=== PATIENT | female | born 1960 | race Caucasian/White ===

== ENCOUNTER 2018-07-22 14:35 | Inpatient (IN) | payer OTHER ==
[2018-07-22] MEDS ORDERED: NACL 0.9% 3 ML SYG IV (16:00)
[2018-07-22] MEDS ORDERED: HYDROCODONE/APAP (5/325) TAB PO (16:00)
[2018-07-22] MEDS ORDERED: ACETAMINOPHEN 325 MG TAB PO (16:00)
[2018-07-22] MEDS ORDERED: ONDANSETRON 4 MG INJ IV (16:00)
[2018-07-22] MEDS ORDERED: ALBUTEROL/IPRATROPIUM (NEB) 3 ML AMP HHN (16:30)
[2018-07-22 16:37] LABS: PROTIME 14.3 Sec (11.9-14.9); PT RATIO 1.1
[2018-07-22 16:38] LABS: PARTIAL THROMBOPLASTIN TIME 28.9 Sec (23.0-35.0)
[2018-07-22 16:41] LABS: LACTIC ACID 1.3 mmol/L (0.5-2.0)
[2018-07-22 16:45] LABS: ALANINE AMINOTRANSFERASE 13 IU/L (13-69); ALBUMIN/GLOBULIN RATIO 1.29; ALKALINE PHOSPHATASE 59 IU/L (42-121); ANION GAP 10 (5-13); ASPARTATE AMINO TRANSFERASE 16 IU/L (15-46); BILIRUBIN,INDIRECT 0.3 mg/dl (0-1.1); BILIRUBIN,TOTAL 0.3 mg/dl (0.2-1.3); BLOOD UREA NITROGEN 18 mg/dl (7-20); CALCIUM 8.8 mg/dl (8.4-10.2); CARBON DIOXIDE 23 mmol/L (21-31); CHLORIDE 103 mmol/L (97-110); CREATININE 0.96 mg/dl (0.44-1.00); Estimated GFR > 60 mL/min (>60); GLUCOSE 108 mg/dl (70-220); POTASSIUM 4.2 mmol/L (3.5-5.1); SODIUM 136 mmol/L (135-144); TOTAL PROTEIN 7.1 g/dl (6.1-8.1)
[2018-07-22] MEDS: SOD CHLORIDE 0.9% 1,000 ML IV (16:54)
[2018-07-22] MEDS: LEVOFLOXACIN 500MG/D5W (PMX) 100 ML IVPB (17:00)
[2018-07-22 17:27] LABS: ABNORMAL IP MESSAGE 1; HEMOGLOBIN 13.6 g/dl (12.0-16.0); MEAN CORPUSCULAR HEMOGLOBIN 29.6 pg (29.0-33.0); MEAN CORPUSCULAR HGB CONC 32.4 g/dl (32.0-37.0); MEAN CORPUSCULAR VOLUME 91.3 fl (82.0-101.0); MEAN PLATELET VOLUME 12.1 fl (7.4-10.4); PLATELET COUNT 207 10^3/UL (140-415); RED CELL DISTRIBUTION WIDTH 13.2 % (11.5-14.5)
[2018-07-22 17:27] LABS: WHITE BLOOD COUNT 28.9 10^3/ul (4.8-10.8)
[2018-07-22 17:30] LABS: POSITIVE DIFF @See below
[2018-07-22 17:31] LABS: ADD MAN DIFF? YES; PATH REVIEW? YES
[2018-07-22 18:35] LABS: BAND NEUTROPHILS #M 0.5 10^3/ul (0.0-0.6); BAND NEUTROPHILS % (M) 2 % (0-4); BASOPHIL #M 0.8 10^3/ul (0.0-0.0); BASOPHILS % (M) 3 % (0-2); LYMPHOCYTES #M 0.5 10^3/ul (0.8-2.9); LYMPHOCYTES % (M) 2 % (15-51); MONOCYTES % (M) 7 % (0-11); PLATELET ESTIMATE NORMAL; REACTIVE LYMPHOCYTES #M 0.2 10^3/ul (0.0-0.0); REACTIVE LYMPHOCYTES% (M) 1 % (0-0); SEG NEUT #M 24.7 10^3/ul (1.6-7.5); SEGMENTED NEUTROPHILS (M) % 85 % (39-77)
[2018-07-22] MEDS: ALBUTEROL/IPRATROPIUM (NEB) 3 ML AMP HHN (20:28)
[2018-07-22] MEDS: BUDESONIDE (NEB) 0.5MG/2ML AMP HHN (20:29)
[2018-07-22] MEDS: MONTELUKAST 10 MG TAB PO (20:48)
[2018-07-22] MEDS ORDERED: NAPROXEN 500 MG TAB PO (23:00)
[2018-07-22] MEDS: AMLODIPINE 10 MG TAB PO (23:24)
[2018-07-22] MEDS: SPIRONOLACTONE 50 MG TAB PO ×2 (23:24→23:41)
[2018-07-22] MEDS: ASPIRIN (EC) 81 MG TAB PO (23:27)
[2018-07-22] MEDS: FLUTICASONE/VILANTEROL 200-25 INH DEVICE INH ×2 (23:29→23:42)
[2018-07-23 05:37] LABS: ADD MAN DIFF? NO
[2018-07-23 05:41] LABS: BASOPHIL # 0.1 10^3/ul (0.0-0.1); BASOPHILS % 0.5 % (0.0-2.0); EOSINOPHILS # 0.2 10^3/ul (0.0-0.5); HEMATOCRIT 38.7 % (37.0-47.0); HEMOGLOBIN 12.4 g/dl (12.0-16.0); LYMPHOCYTES # 1.2 10^3/ul (0.8-2.9); MEAN CORPUSCULAR HEMOGLOBIN 29.6 pg (29.0-33.0); MEAN CORPUSCULAR VOLUME 92.4 fl (82.0-101.0); MEAN PLATELET VOLUME 10.9 fl (7.4-10.4); MONOCYTES % 5.9 % (0.0-11.0); NEUTROPHILS % 84.9 % (39.0-77.0); PLATELET COUNT 266 10^3/UL (140-415); RED BLOOD COUNT 4.19 10^6/ul (4.20-5.40); RED CELL DISTRIBUTION WIDTH 13.2 % (11.5-14.5)
[2018-07-23 05:41] LABS: WHITE BLOOD COUNT 16.5 10^3/ul (4.8-10.8)
[2018-07-23 06:31] LABS: ALANINE AMINOTRANSFERASE 13 IU/L (13-69); ALBUMIN 3.5 g/dl (3.3-4.9); ALBUMIN/GLOBULIN RATIO 1.16; ALKALINE PHOSPHATASE 50 IU/L (42-121); ANION GAP 8 (5-13); ASPARTATE AMINO TRANSFERASE 11 IU/L (15-46); BILIRUBIN,INDIRECT 0.3 mg/dl (0-1.1); BILIRUBIN,TOTAL 0.3 mg/dl (0.2-1.3); BLOOD UREA NITROGEN 16 mg/dl (7-20); CARBON DIOXIDE 26 mmol/L (21-31); CHLORIDE 105 mmol/L (97-110); CHOLESTEROL 96 mg/dl (100-200); CREATININE 0.89 mg/dl (0.44-1.00); Estimated GFR > 60 mL/min (>60); GLUCOSE 161 mg/dl (70-220); HDL CHOLESTEROL 31 mg/dl (37-92); LDL CHOLESTEROL,CALCULATED 50 mg/dl; MAGNESIUM 2.1 mg/dl (1.7-2.5); POTASSIUM 3.6 mmol/L (3.5-5.1); SODIUM 139 mmol/L (135-144); TOTAL PROTEIN 6.5 g/dl (6.1-8.1); TRIGLYCERIDES 75 mg/dl (0-149)
[2018-07-23 06:50] LABS: ADD UMIC YES; UR ASCORBIC ACID NEGATIVE (NEGATIVE); UR BILIRUBIN (Dip) NEGATIVE (NEGATIVE); UR BLOOD (Dip) 1+ mg/dL (NEGATIVE); UR CLARITY CLEAR (CLEAR); UR COLOR YELLOW (YELLOW); UR GLUCOSE (Dip) NEGATIVE (NEGATIVE); UR KETONES (Dip) NEGATIVE (NEGATIVE); UR LEUKOCYTE ESTERASE (Dip) NEGATIVE Leu/ul (NEGATIVE); UR NITRITE (Dip) NEGATIVE (NEGATIVE); UR RBC 2 /HPF (0-5); UR TOTAL PROTEIN (Dip) NEGATIVE (NEGATIVE); UR UROBILINOGEN (Dip) 1+ mg/dL (NEGATIVE); UR WBC 1 /HPF (0-5)
[2018-07-23 06:56] LABS: THYROID STIMULATING HORMONE 0.663 MIU/L (0.465-4.680)
[2018-07-23] MEDS ORDERED: IPRATROPIUM (HFA) 12.9 GM INHALER INH (09:00)
[2018-07-23] MEDS ORDERED: HYDROCHLOROTHIAZIDE 12.5 MG CAP PO ×2 (09:00→21:00)
[2018-07-23] MEDS ORDERED: SPIRONOLACTONE 50 MG TAB PO ×2 (09:00→21:00)
[2018-07-23 09:18] LABS: HEMOGLOBIN A1C 5.9 % (0-5.9)
[2018-07-23 11:37] LABS: AMPHETAMINE/METHAMPHETAMINE NEGATIVE (NEGATIVE); BARBITURATES NEGATIVE (NEGATIVE); BENZODIAZEPINES NEGATIVE (NEGATIVE); CANNABINOIDS NEGATIVE (NEGATIVE); COCAINE NEGATIVE (NEGATIVE); OPIATES NEGATIVE (NEGATIVE)
[2018-07-23] MEDS ORDERED: ASPIRIN (EC) 81 MG TAB PO (21:00)
[2018-07-23] MEDS ORDERED: AMLODIPINE 10 MG TAB PO (21:00)
[2018-07-23] MEDS ORDERED: FLUTICASONE/VILANTEROL 200-25 INH DEVICE INH (21:00)
== END 2018-07-23 07:48 | disposition left against medical advice (07) | DRG 872 ==
LOC: 6WM 14:35
DX: A41.9 Sepsis, unspecified organism (principal); K92.9 Disease of digestive system, unspecified; I10 Essential (primary) hypertension; F64.8 Other gender identity disorders; F17.200 Nicotine dependence, unspecified, uncomplicated; Z59.0 Homelessness
CPT/HCPCS: 71045; 80053; 80061; 80307; 81001; 83036; 83605; 83735; 84443; 85025; 85610; 85730; 87040-91; 87081; 87086; 94640; 94664